=== PATIENT | female | born 2000 | race Caucasian/White ===

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

== ENCOUNTER 2019-05-01 08:36 | Emergency (ER) | payer OTHER ==
[2019-05-01 09:18] VITALS: BP 129/64
--- NOTE | 2019-05-01 09:39 | UC ---
Ear Complaint HPI - HPI Summary HPI Summary: Patient presents to urgent care with significant other for evaluation of a wound on right ear. Patient states she has gauge his pre-patient's TPN returned In size last week. Patient states she had increased pain and swelling of the right ear. Patient states she pulled a gauge of the right ear out last night and had a " pus blister" rupture. Patient states she has pain. Patient has taken Motrin Tylenol with little improvement. Patient concerned she has infection. Patient is not immunocompromised. Patient states her tetanus is up- to-date. Patient's R have MRSA. Patient states she is not . Patient' s medication as updated in EMR by triage this visit. - History of Current Complaint Chief Complaint: UCSkin Stated Complaint: EAR COMPLAINT Time Seen by Provider: 05/01/19 09:31 Hx Obtained From: Patient Hx Last Menstrual Period: 03/29/19 Pain Intensity: 6 - Allergies/Home Medications Allergies/Adverse Reactions: Allergies Allergy/AdvReac Type Severity Reaction Status Date / Time No Known Allergies Allergy Verified 05/01/19 09:13 Home Medications: Home Medications Cholecalciferol (Vitamin D3) [Vitamin D-3] 2,000 unit PO DAILY 05/01/19 [ History Confirmed 05/01/19] PMH/Surg Hx/FS Hx/Imm Hx Previously Healthy: Yes - Surgical History Surgical History: None Surgery Procedure, Year, and Place: left foot cyst - Family History Known Family History: Positive: Non-Contributory - Social History Occupation: Employed Full-time Lives: With Family Alcohol Use: None Substance Use Type: None Smoking Status (MU): Light Every Day Tobacco Smoker When Did the Patient Quit Smoking/Using Tobacco: 02/2018 - Immunization History Vaccination Up to Date: Yes Review of Systems All Other Systems Reviewed And Are Negative: Yes Constitutional: Positive: Negative Skin: Positive: Other ENT: Positive: Other - right earlobe erythema, drainage Physical Exam - Summary Physical Exam Summary: Vital Signs Reviewed: Yes A+Ox3, no distress Eyes: Conjunctiva Clear, MILLIE, EOM intact and full ENT: Hearing grossly normal, Right ear lobe - erythema, drainage, pain, small amount of purulent discharge noted in open wound of piercing + TTP neck: supple Respiratory: Positive: No respiratory distress, No accessory muscle use Cardiovascular: skin color reflect adequate perfusion Musculoskeletal Exam: MARTINEZ x 4 without difficulty Neurological: Positive: Alert, ambulatory without difficulty Psychological: Positive: Normal Response To examiner Skin: Positive: no rash, no ecchymosis, open infected wound right earlobe as noted above Triage Information Reviewed: Yes Vital Signs: Initial Vital Signs Temp 97.7 F 05/01/19 09:13 Pulse 91 05/01/19 09:13 Resp 14 05/01/19 09:13 BP 129/64 05/01/19 09:13 Pulse Ox 99 05/01/19 09:13 Ear Complaint Course/Dx - Course Course Of Treatment: Patient presents to urgent care for evaluation of wound below. Patient states she had gauges in the ear. Patient states she noticed that the one on the right was getting more painful and swollen. Patient states she took that yesterday and there was pus. Patient reports increased pain. Patient is not immunocompromised tetanus is up-to-date and has no history of MRSA. On exam vital signs are stable. Patient's right earlobe wound consistent with cellulitis and infection. No abscess appreciated on exam. Culture taken. We' ll start antibiotics. Epsom salts soaks. Motrin and Tylenol. Return precautions. Patient comfortable and agreement with plan. - Differential Dx/Diagnosis Provider Diagnosis: Wound infection Discharge ED - Sign-Out/Discharge Documenting (check all that apply): Patient Departure All imaging exams completed and their final reports reviewed: No Studies - Discharge Plan Condition: Stable Disposition: HOME Prescriptions: Mupirocin 2% OINT* [Bactroban 2 % Oint*] 1 applic TOPICAL BID #1 tube Sulfamethox/Trimethoprim DS* [Bactrim DS 800/160 TAB*] 1 tab PO BID #14 tab Patient Education Materials: Cellulitis (ED) Referrals: Beverley Cardona MD [Primary Care Provider] - Additional Instructions: - Apply a sloppy wet warm posterior ear for 10 minutes twice a day. After you soak his wound, pat dry completely. - Cover wound with antibiotic ointment as prescribed twice a day - Take oral antibiotics twice a day for 7 days is prescribed - Okay to alternate ibuprofen (Advil, Motrin) and Tylenol (acetaminophen) every 3 hours for pain or fever. Take with food. Do NOT take for more than 4-5 days. - Contact your doctor return here with any questions or concerns or worsening infection. This includes increased redness, drainage, fever, facial swelling, or any other concerns. - Billing Disposition and Condition Condition: STABLE Disposition: Home
== END 2019-05-01 09:56 | disposition home or self-care (01) ==
LOC: UCCORT 08:36
DX: H66.91 Otitis media, unspecified, right ear (principal); Z87.891 Personal history of nicotine dependence
CPT/HCPCS: 87070; 87077; 87205; 87640; 87641; 99212; G0463